=== PATIENT | male | born 1995 | race Two or more races ===

== ENCOUNTER 2022-11-24 12:02 | Outpatient (CLI) | payer OTHER ==
[2022-11-24] MEDS ORDERED: iohexoL-240 10 ML VIAL IVP ONE ×2 (12:17→14:00)
[2022-11-24] MEDS ORDERED: LIDOCAINE-MPF 1% 5 ML VIAL ONE (12:17)
[2022-11-24] MEDS ORDERED: GADOBUTROL 7.5 MMOL/7.5 ML VIAL ONE (12:17)
[2022-11-24] MEDS ORDERED: LIDOCAINE-MPF 1% 5 ML VIAL SUBQ ONE (14:01)
[2022-11-24] MEDS ORDERED: GADOBUTROL 7.5 MMOL/7.5 ML VIAL IVP ONE (14:03)
--- NOTE | 2022-11-24 16:30 | MRI Report ---
PROCEDURE: ARTHROGRAM SHOULDER - RT INDICATIONS: PAIN IN RIGHT SHOULDER CONTRAST: dilute intra-articular Gadolinium contrast TECHNIQUE: After the administration of 12 mL of dilute intra-articular Gadolinium contrast, oblique coronal T1 a nd T2 spin echo with fat saturation, oblique sagittal T1 spin echo with and without fat saturation, o blique sagittal T2 fast spin echo with fat saturation, axial T1 spin echo with fat saturation through the shoulder. COMPARISON: Fluoroscopic images from arthrogram injection performed earlier the same day. FINDINGS: Image quality: Excellent. Rotator cuff: Focal low-grade bursal surface tearing of the supraspinatus tendon at the distal insert ion measuring 3 mm in anteroposterior dimension superimposed on mild supraspinatus and infraspinatus tendinosis. Additionally, there is focal fluid signal intensity along the articular surface of the nolan praspinatus tendon at the critical zone with adjacent fluid tracking medially along the supraspinatus muscle. The teres minor and subscapularis tendons are intact. There is no significant rotator cuff m uscle atrophy. Bones and bursae: No acute trabecular bone injury or fracture. Small chronic traction cystic changes are seen at the posterosuperior humeral head. No focal glenohumeral cartilage defect. Mild degenerati ve changes are seen at the acromioclavicular joint. No filling defect is seen within the subacromial/ subdeltoid bursa. No significant subacromial/subdeltoid bursal fluid is seen. No filling defect is se en in the glenohumeral joint. No extravasation of glenohumeral contrast material. Capsule and soft tissues: No uptake of intra-articular contrast material is seen to suggest an acute labral tear. The biceps long head tendon is intact. The glenohumeral ligaments are intact. IMPRESSION: 1.Focal low-grade bursal surface tearing at the distal supraspinatus tendon insertion measuring 3 mm anterior posterior dimension. Additional subtle focus of suspected low-grade articular surface tearin g at the posterior supraspinatus tendon critical zone with lobular noncommunicating fluid tracking me dially along the supraspinatus muscle. 2.Mild supraspinatus and infraspinatus tendinosis. 3.Mild acromioclavicular joint osteoarthrosis. Reviewed by: Steven Batres MD on 11/24/2022 4:28 PM PDT Approved by: Steven Batres MD on 11/24/2022 4:28 PM PDT Station ID: [id number]
--- NOTE | 2022-11-24 18:48 | XRAY Report ---
PROCEDURE: Arthrogram Needle Placement INDICATIONS: PAIN IN RIGHT SHOULDER CONTRAST: Intra-articular contrast was administered FLUOROSCOPY TIME: 0.01 MIN TECHNIQUE: The indications, alternatives, benefits, risks, and complications of the procedure were explained to the patient. Written informed consent was obtained and placed in the chart. The shoulder was examin ed fluoroscopically and a site for needle placement chosen for entry into the glenohumeral joint from an anterior approach. The skin was prepped and draped in the usual fashion, and 1% lidocaine infilt rated from skin down to joint capsule. A spinal needle was inserted into the glenohumeral joint, and a small amount of iodinated contrast media injected to confirm intra-articular placement of the need le tip. This was followed by approximately 12 mL dilute solution of a gadolinium containing MR contr ast agent. The needle was removed and a dressing was applied. The patient was given postprocedural instructions and sent to the MR suite for MR imaging. FINDINGS: A single fluoroscopic spot image demonstrates intra-articular location of injected iodinated contrast . IMPRESSION: Successful fluoroscopically guided administration of dilute Gadolinium solution into the shoulder shelli nt for MR arthrogram. Reviewed by: Luisito Moon MD on 11/24/2022 6:47 PM PDT Approved by: Luisito Moon MD on 11/24/2022 6:47 PM PDT Station ID: [id number]
== END 2022-11-24 12:03 | disposition home or self-care (01) ==
LOC: DI 12:02
PROVIDERS: ATTEND Student in an Organized Health Care Education/Training Program
DX: M75.101 Unspecified rotator cuff tear or rupture of right shoulder, not specified as traumatic (principal); M19.011 Primary osteoarthritis, right shoulder
CPT/HCPCS: 23350; 73222; 77002; A9585; Q9966